=== PATIENT | male | born 1990 | race Two or more races ===

== ENCOUNTER 2016-08-29 20:57 | Emergency (ER) | payer SELFPAY ==
[2016-08-29 21:53] VITALS: BP 140/86; PULSE 74; TEMP 98.2; O2SAT 97
--- NOTE | 2016-08-29 22:12 | ED PDOC ---
HPI: Eye Injury/Pain Time Seen by Provider: 08/29/16 21:56 Chief Complaint (Nursing): Eye Problem Chief Complaint (Provider): Allergic conjunctivitis History Per: Patient Additional Complaint(s): pt is a 26 yo male, no PMH, arrives for eval swollen left eye after scratching it due to allergies. (+) sneezing and nasal congestion as well. Past Medical History Reviewed: Nursing Documentation, Vital Signs Vital Signs: Last Vital Signs Temp 98.2 F 08/29/16 21:51 Pulse 74 08/29/16 21:51 Resp 8 L 08/29/16 21:51 BP 140/86 08/29/16 21:51 Pulse Ox 97 08/29/16 21:51 - Medical History PMH: No Chronic Diseases - Surgical History Surgical History: No Surg Hx - Family History Family History: States: No Known Family Hx - Living Arrangements Living Arrangements: With Family - Social History Current smoker - smoking cessation education provided: No - Home Medications Home Medications: Ambulatory Orders Medication Instructions Recorded Fexofenadine/Pseudoephedrine 1 each PO DAILY #30 tab.er.24h 08/29/16 [Peggy-D 24 Hour Tablet] Olopatadine HCl [Pataday] 2.5 ml OP DAILY #1 bottle 08/29/16 - Allergies Allergies/Adverse Reactions: Allergies Allergy/AdvReac Type Severity Reaction Status Date / Time No Known Allergies Allergy Verified 08/29/16 21:51 Review of Systems ROS Statement: Except As Marked, All Systems Reviewed And Found Negative Eyes: Positive for: Conjunctivae Inflammation, Redness. Negative for: Pain, Vision Change ENT: Positive for: Nose Congestion Physical Exam - Reviewed Nursing Documentation Reviewed: Yes Vital Signs Reviewed: Yes - Physical Exam Appears: Positive for: Well, Non-toxic, No Acute Distress Head Exam: Positive for: ATRAUMATIC, NORMAL INSPECTION, NORMOCEPHALIC Skin: Positive for: Normal Color, Warm, DRY Eye Exam: Positive for: EOMI, PERRL, Conjunctival injection ENT: Positive for: Normal ENT Inspection Neck: Positive for: Normal, Painless ROM Cardiovascular/Chest: Positive for: Regular Rate, Rhythm Respiratory: Positive for: CNT, Normal Breath Sounds Gastrointestinal/Abdominal: Positive for: Normal Exam, Bowel Sounds, Soft Back: Positive for: Normal Inspection Extremity: Positive for: Normal ROM Neurologic/Psych: Positive for: Alert, Oriented - ECG O2 Sat by Pulse Oximetry: 97 Medical Decision Making Medical Decision Making: Given RX for Pataday Drops and Peggy D Advised to follow up with PMD, return to ED with any concerns Disposition - Clinical Impression Clinical Impression: Allergic conjunctivitis, Seasonal allergies - Patient ED Disposition Is Patient to be Admitted: No - Disposition Disposition: Routine/Home Disposition Time: 22:19 Condition: STABLE Prescriptions: Fexofenadine/Pseudoephedrine [Peggy-D 24 Hour Tablet] 1 each PO DAILY #30 tab.er.24h Olopatadine HCl [Pataday] 2.5 ml OP DAILY #1 bottle Instructions: Allergic Rhinitis (ED), Conjunctivitis (ED) Forms: [facility] (Persian) - POA Present On Arrival: None
[2016-08-30 00:27] VITALS: RESP 16
== END 2016-08-29 22:31 | disposition home or self-care (01) ==
LOC: H.ER 20:57
DX: H10.022 Other mucopurulent conjunctivitis, left eye (principal); J30.2 Other seasonal allergic rhinitis